=== PATIENT | female | born 1980 | race African-American/Black ===

== ENCOUNTER 2019-01-26 17:30 | Emergency (ER) | payer OTHER ==
[~2019-01-26] VITALS: Ht 167.6 cm; Wt 158.8 kg
[2019-01-26] MEDS ORDERED: NKM (17:40)
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
[2019-01-26 17:58] VITALS: BP 143/88
[2019-01-26] MEDS ORDERED: HYDROcodone/Acetamin 5/325 tab PO ONE (18:00)
--- NOTE | 2019-01-26 18:45 | NUR ---
ED Nurse Note: xray at the bedside.
[2019-01-26] MEDS ORDERED: Lidocaine 1% 10mg/ml/EPI 0.01mg/ml 20ml INJ ONE (19:30)
--- NOTE | 2019-01-26 19:30 | NUR ---
HAND-OFF: Report given to RN Austin and endorsed care, notified RN regarding ermd doing hematoma reduction.
--- NOTE | 2019-01-26 19:35 | NUR ---
ED Nurse Note: Received report from CHELO Askew. patient at no distress at this time, supplied another ice pack.
[2019-01-26] MEDS ORDERED: Bupivacaine 0.5% Inj 30 ml vial INJ ONE ×2 (21:15→21:16)
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
[2019-01-26] MEDS ORDERED: NAPROXEN500 M2 ORAL (23:57)
[2019-01-26] MEDS ORDERED: PERCOCET 5-3251 EACH ORAL (23:57)
[2019-01-27] VITALS: BP 143/88
--- NOTE | 2019-01-27 | NUR ---
ER DISCHARGE NOTE: Patient is cleared to be discharged per ERMD, pt is aox4, on room air, with stable vital signs. pt was given dc and prescription instructions, pt was able to verbalize understanding, pt id band removed. pt is able to ambulate with steady gait. pt took all belongings.
--- NOTE | 2019-01-27 15:12 | Diagnostic Imaging Report ---
Indications: Trauma Technique: Two views of the left forearm Comparison: None Findings: There is a fracture of the distal radial metaphysis. This is described in detail on separate wrist radiograph report. No shaft fracture. No ulnar fracture. The joint spaces are preserved Impression: Positive for distal radial fracture-see separate wrist radiograph report
--- NOTE | 2019-01-27 15:14 | Diagnostic Imaging Report ---
Clinical Indication:Trauma, pain Technique: 3 views of the left wrist Comparison: None Findings: There is a fracture of the distal radial metaphysis. This appears to be comminuted, extends into the articular surface. It is displaced posteriorly by one half bone width. No associated ulnar fracture demonstrated. Impression: Positive for distal radial fracture
== END 2019-01-27 | disposition home or self-care (01) ==
LOC: EMR 18:06
DX: S52.552A Other extraarticular fracture of lower end of left radius, initial encounter for closed fracture (principal); F17.200 Nicotine dependence, unspecified, uncomplicated; V43.52XA Car driver injured in collision with other type car in traffic accident, initial encounter; Y92.411 Interstate highway as the place of occurrence of the external cause
CPT/HCPCS: 25605; 73090; 73110; S0020; Z7502; 99284